=== PATIENT | female | born 1975 | race Caucasian/White ===

== ENCOUNTER 2020-10-18 12:20 | Inpatient (IN) ==
[2020-10-18 16:21] LABS: Basophils # 0.1 10*3/uL (0.0-0.2); Basophils % 0.9 % (0.0-0.8); Eosinophils % 0.2 % (0.00-10.9); Hemoglobin 14.1 GM/DL (12.0-16.0); Immature Granulocytes % 5.6 %; Immature Granulocytes Absolute 0.73 #; Lymphocytes # 1.6 10*3/uL (1.4-4.0); Mean Corpuscular HGB Conc 32.8 GM/DL (32-36); Mean Corpuscular Volume 86.2 FL (87-102); Mean Platelet Volume 9.4 FL (9.6-12.0); Monocytes % 9.3 % (1.7-12.7); Platelet Count 459 T/CUMM (130-400); Red Blood Count 4.99 MC/CUMM (3.8-5.5); Red Cell Distribution Width 13.8 % (9.3-17.3); White Blood Count 12.9 T/CUMM (4-12)
[2020-10-18] MEDS ORDERED: VANCOMYCIN INJ 1,000 MG in SODIUM CHLORIDE 0.9% 250 ML IV STA (16:28)
[2020-10-18] MEDS ORDERED: FUROSEMIDE 40 MG/4 ML VIAL IV STA (16:29)
[2020-10-18 16:39] LABS: Albumin 2.5 G/DL (3.4-5.0); Bilirubin,Total 1.4 MG/DL (0.20-1.00); Calcium 9.4 MG/DL (8.5-10.1); Osmolality,Calculated 265.7 MOS/KG (273-304); Potassium 5.1 MMOL/L (3.5-5.1)
[2020-10-18] MEDS ORDERED: ZALEPLON 5 MG CAPSULE PO PRN (17:33)
[2020-10-18] MEDS ORDERED: ONDANSETRON 4 MG/2 ML VIAL IV PRN (17:33)
[2020-10-18] MEDS ORDERED: GLUCAGON 1 MG VIAL IM PRN (17:33)
[2020-10-18] MEDS ORDERED: MORPHINE 2 MG/1 ML SYRINGE IV PRN (17:33)
[2020-10-18] MEDS ORDERED: diphenhydrAMINE CAP 25 MG CAPSULE PO PRN (17:33)
[2020-10-18] MEDS ORDERED: NICOTINE 21 MG/24 HR PATCH TRANSDERM PRN (17:33)
[2020-10-18] MEDS ORDERED: guaiFENesin/DM ER 600-30 MG TABLET PO PRN (17:33)
[2020-10-18] MEDS ORDERED: hydrALAZINE 20 MG/1 ML VIAL IV PRN (17:33)
[2020-10-18] MEDS ORDERED: DEXTROSE 50% 25 GM/50 ML VIAL IV PRN (17:33)
[2020-10-18] MEDS ORDERED: ACETAMINOPHEN 325 MG TABLET PO PRN (17:33)
[2020-10-18 18:47] LABS: Lymphocytes 13 % (20-55); Segmented Neutrophils 75 % (50-85)
[2020-10-18 18:48] LABS: Total Cells Counted 100
[2020-10-18] MEDS: CLINDAMYCIN INJ 600 MG/50 ML PREMIX IV SCH (21:46)
[2020-10-18] MEDS: SODIUM CHLORIDE 0.9% 1,000 ML IV SCH (21:46)
[2020-10-18] MEDS: ENOXAPARIN 40 MG/0.4 ML SYRINGE SUBCUT SCH (21:46)
[2020-10-18] MEDS: FLUCONAZOLE INJ 200 MG/100 ML PREMIX IV SCH (22:33)
[2020-10-19] MEDS: CLINDAMYCIN INJ 600 MG/50 ML PREMIX IV SCH ×3 (03:55→16:19)
[2020-10-19] MEDS: VANCOMYCIN INJ 1,500 MG in SODIUM CHLORIDE 0.9% 500 ML IV SCH ×2 (03:56→17:54)
[2020-10-19 06:45] LABS: Basophils # 0.1 10*3/uL (0.0-0.2); Basophils % 0.9 % (0.0-0.8); Eosinophils # 0.1 10*3/uL (0.0-0.87); Eosinophils % 0.9 % (0.00-10.9); Hematocrit 32.9 VOL% (35.7-47.0); Immature Granulocytes % 6.4 %; Immature Granulocytes Absolute 0.55 #; Lymphocytes # 1.7 10*3/uL (1.4-4.0); Lymphocytes % 19.3 % (21.3-54.2); Mean Corpuscular HGB Conc 31.9 GM/DL (32-36); Mean Platelet Volume 9.7 FL (9.6-12.0); Monocytes % 9.5 % (1.7-12.7); Red Cell Distribution Width 14.1 % (9.3-17.3)
[2020-10-19 06:47] LABS: Hemoglobin 10.5 GM/DL (12.0-16.0); Red Blood Count 3.74 MC/CUMM (3.8-5.5); White Blood Count 8.7 T/CUMM (4-12)
[2020-10-19 06:48] LABS: Platelet Count 315 T/CUMM (130-400)
[2020-10-19 06:54] LABS: Calcium 7.7 MG/DL (8.5-10.1); Osmolality,Calculated 273.8 MOS/KG (273-304); Potassium 3.6 MMOL/L (3.5-5.1)
[2020-10-19 07:28] LABS: Hypochromasia 1+; Lymphocytes 15 % (20-55); Microcytosis 1+; Ovalocytes Slight; Segmented Neutrophils 78 % (50-85); Total Cells Counted 100
[2020-10-19 07:29] LABS: Platelet Estimate Normal
[2020-10-19] MEDS: PANTOPRAZOLE 40 MG TABLET PO SCH (09:35)
[2020-10-19] MEDS: BISACODYL 5 MG TABLET PO SCH (10:10)
[2020-10-19] MEDS: ENOXAPARIN 40 MG/0.4 ML SYRINGE SUBCUT SCH (17:04)
[2020-10-19] MEDS: cefTRIAXone 2,000 MG in SODIUM CHLORIDE 0.9% 100 ML IV SCH (20:06)
[2020-10-19] MEDS: FLUCONAZOLE INJ 200 MG/100 ML PREMIX IV SCH (21:51)
[2020-10-20] MEDS: VANCOMYCIN INJ 1,500 MG in SODIUM CHLORIDE 0.9% 500 ML IV SCH ×2 (03:53→16:22)
[2020-10-20 05:33] LABS: Basophils # 0.1 10*3/uL (0.0-0.2); Basophils % 1.2 % (0.0-0.8); Eosinophils # 0.3 10*3/uL (0.0-0.87); Eosinophils % 3.5 % (0.00-10.9); Hematocrit 35.1 VOL% (35.7-47.0); Hemoglobin 10.8 GM/DL (12.0-16.0); Immature Granulocytes % 8.2 %; Immature Granulocytes Absolute 0.69 #; Lymphocytes # 1.7 10*3/uL (1.4-4.0); Lymphocytes % 20.3 % (21.3-54.2); Mean Corpuscular HGB Conc 30.8 GM/DL (32-36); Mean Corpuscular Volume 90.2 FL (87-102); Mean Platelet Volume 9.4 FL (9.6-12.0); Monocytes % 8.9 % (1.7-12.7); Neutrophils % 57.9 % (38.7-73.9); Platelet Count 283 T/CUMM (130-400); Red Blood Count 3.89 MC/CUMM (3.8-5.5); Red Cell Distribution Width 14.5 % (9.3-17.3); White Blood Count 8.4 T/CUMM (4-12)
[2020-10-20 05:54] LABS: Calcium 7.7 MG/DL (8.5-10.1); Potassium 3.7 MMOL/L (3.5-5.1)
[2020-10-20 06:35] LABS: Band Neutrophils 2 % (0-10); Eosinophils 2 % (0-10); Lymphocytes 9 % (20-55); Myelocytes 2 %; Platelet Estimate Normal; Segmented Neutrophils 78 % (50-85); Total Cells Counted 100
[2020-10-20] MEDS: PANTOPRAZOLE 40 MG TABLET PO SCH (09:11)
[2020-10-20] MEDS: MULTIVITAMIN (BEROCCA) TABLET PO SCH (09:11)
[2020-10-20] MEDS: CHOLECALCIFEROL 1,000 UNIT TABLET PO SCH (09:11)
[2020-10-20] MEDS: BISACODYL 5 MG TABLET PO SCH (10:02)
[2020-10-20] MEDS: NYSTATIN POWDER 15 GM BOTTLE TOP SCH ×2 (15:35→21:21)
[2020-10-20] MEDS: ENOXAPARIN 40 MG/0.4 ML SYRINGE SUBCUT SCH (18:14)
[2020-10-20] MEDS: cefTRIAXone 2,000 MG in SODIUM CHLORIDE 0.9% 100 ML IV SCH (18:14)
[2020-10-20] MEDS: FLUCONAZOLE INJ 200 MG/100 ML PREMIX IV SCH (21:20)
[2020-10-20] MEDS: POLYETHYLENE GLYCOL POWDER 17 GM PACK PO SCH (21:21)
[2020-10-20] MEDS: LUBIPROSTONE 8 MCG CAPSULE PO SCH (21:21)
[2020-10-20] MEDS: DOCUSATE SODIUM 100 MG CAPSULE PO SCH (21:21)
[2020-10-21] MEDS: SODIUM CHLORIDE 0.9% 1,000 ML IV SCH ×2 (03:27→17:32)
[2020-10-21] MEDS: VANCOMYCIN INJ 1,500 MG in SODIUM CHLORIDE 0.9% 500 ML IV SCH (03:28)
[2020-10-21] MEDS ORDERED: VANCOMYCIN INJ 1,250 MG in SODIUM CHLORIDE 0.9% 250 ML IV SCH (04:30)
[2020-10-21 04:56] LABS: Basophils # 0.1 10*3/uL (0.0-0.2); Eosinophils # 0.5 10*3/uL (0.0-0.87); Eosinophils % 5.8 % (0.00-10.9); Hematocrit 39.4 VOL% (35.7-47.0); Immature Granulocytes % 6.4 %; Immature Granulocytes Absolute 0.58 #; Lymphocytes # 1.8 10*3/uL (1.4-4.0); Lymphocytes % 19.5 % (21.3-54.2); Mean Corpuscular HGB Conc 30.5 GM/DL (32-36); Mean Corpuscular Volume 91.8 FL (87-102); Mean Platelet Volume 9.3 FL (9.6-12.0); Monocytes % 7.7 % (1.7-12.7); Neutrophils % 59.6 % (38.7-73.9); Platelet Count 339 T/CUMM (130-400); Red Blood Count 4.29 MC/CUMM (3.8-5.5); Red Cell Distribution Width 14.5 % (9.3-17.3); White Blood Count 9.1 T/CUMM (4-12)
[2020-10-21 05:21] LABS: Eosinophils 4 % (0-10); Hypochromasia 1+; Lymphocytes 16 % (20-55); Microcytosis 1+; Segmented Neutrophils 66 % (50-85); Total Cells Counted 100
[2020-10-21 05:22] LABS: Platelet Estimate Normal
[2020-10-21 05:26] LABS: Potassium 3.7 MMOL/L (3.5-5.1)
[2020-10-21 05:29] LABS: Osmolality,Calculated 271.7 MOS/KG (273-304)
[2020-10-21] MEDS: LINACLOTIDE 145 MCG CAPSULE PO SCH (08:38)
[2020-10-21] MEDS: BISACODYL 5 MG TABLET PO SCH (08:39)
[2020-10-21] MEDS: LUBIPROSTONE 8 MCG CAPSULE PO SCH ×2 (08:39→20:17)
[2020-10-21] MEDS: POLYETHYLENE GLYCOL POWDER 17 GM PACK PO SCH ×2 (08:39→20:51)
[2020-10-21] MEDS: MULTIVITAMIN (BEROCCA) TABLET PO SCH (09:31)
[2020-10-21] MEDS: PANTOPRAZOLE 40 MG TABLET PO SCH (09:31)
[2020-10-21] MEDS: CHOLECALCIFEROL 1,000 UNIT TABLET PO SCH (09:31)
[2020-10-21] MEDS: DOCUSATE SODIUM 100 MG CAPSULE PO SCH ×2 (09:32→20:51)
[2020-10-21] MEDS: NYSTATIN POWDER 15 GM BOTTLE TOP SCH ×3 (09:35→20:17)
[2020-10-21] MEDS: FUROSEMIDE 40 MG TABLET PO SCH (15:45)
[2020-10-21] MEDS: SKIN HEALING OINT (AQUAPHOR) 50 GM TUBE TOP SCH (15:46)
[2020-10-21] MEDS: SPIRONOLACTONE 25 MG TABLET PO SCH (15:46)
[2020-10-21] MEDS: ENOXAPARIN 40 MG/0.4 ML SYRINGE SUBCUT SCH (17:52)
[2020-10-21] MEDS: cefTRIAXone 2,000 MG in SODIUM CHLORIDE 0.9% 100 ML IV SCH (20:51)
[2020-10-21] MEDS: DESITIN 4OZ/NYSTATIN 15 GRAM MIXTURE PASTE TOP SCH (21:31)
[2020-10-22] MEDS: SODIUM CHLORIDE 0.9% 1,000 ML IV SCH ×2 (04:05→17:00)
[2020-10-22 05:43] LABS: Basophils # 0.1 10*3/uL (0.0-0.2); Basophils % 0.9 % (0.0-0.8); Eosinophils # 0.5 10*3/uL (0.0-0.87); Eosinophils % 5.1 % (0.00-10.9); Hemoglobin 10.8 GM/DL (12.0-16.0); Immature Granulocytes Absolute 0.47 #; Lymphocytes # 1.8 10*3/uL (1.4-4.0); Mean Corpuscular HGB Conc 31.8 GM/DL (32-36); Mean Corpuscular Volume 89.5 FL (87-102); Mean Platelet Volume 9.3 FL (9.6-12.0); Monocytes % 7.8 % (1.7-12.7); Neutrophils % 62.2 % (38.7-73.9); Platelet Count 289 T/CUMM (130-400); Red Cell Distribution Width 14.4 % (9.3-17.3); White Blood Count 9.5 T/CUMM (4-12)
[2020-10-22 06:01] LABS: Calcium 7.6 MG/DL (8.5-10.1); Osmolality,Calculated 274.4 MOS/KG (273-304)
[2020-10-22] MEDS ORDERED: VANCOMYCIN INJ 1,500 MG in SODIUM CHLORIDE 0.9% 250 ML IV SCH (09:00)
[2020-10-22] MEDS: LUBIPROSTONE 8 MCG CAPSULE PO SCH ×2 (10:11→21:29)
[2020-10-22] MEDS: LINACLOTIDE 145 MCG CAPSULE PO SCH (10:11)
[2020-10-22] MEDS: DOCUSATE SODIUM 100 MG CAPSULE PO SCH ×2 (10:12→21:29)
[2020-10-22] MEDS: BISACODYL 5 MG TABLET PO SCH (10:12)
[2020-10-22] MEDS: SPIRONOLACTONE 25 MG TABLET PO SCH (10:13)
[2020-10-22] MEDS: CHOLECALCIFEROL 1,000 UNIT TABLET PO SCH (10:13)
[2020-10-22] MEDS: POTASSIUM CHLORIDE 20 MEQ TABLET PO SCH (10:13)
[2020-10-22] MEDS: MULTIVITAMIN (BEROCCA) TABLET PO SCH (10:13)
[2020-10-22] MEDS: FUROSEMIDE 40 MG TABLET PO SCH (10:13)
[2020-10-22] MEDS: PANTOPRAZOLE 40 MG TABLET PO SCH (10:13)
[2020-10-22] MEDS: SKIN HEALING OINT (AQUAPHOR) 50 GM TUBE TOP SCH (10:14)
[2020-10-22] MEDS: POLYETHYLENE GLYCOL POWDER 17 GM PACK PO SCH ×2 (10:15→21:29)
[2020-10-22] MEDS: NYSTATIN POWDER 15 GM BOTTLE TOP SCH ×3 (10:15→21:33)
[2020-10-22] MEDS: DESITIN 4OZ/NYSTATIN 15 GRAM MIXTURE PASTE TOP SCH ×2 (10:20→21:34)
[2020-10-22] MEDS: VANCOMYCIN INJ 1,500 MG in SODIUM CHLORIDE 0.9% 500 ML IV SCH (11:23)
[2020-10-22] MEDS ORDERED: TUBERCULIN SKIN TEST 0.1 ML SYRINGE INTRADERM ONE (13:00)
[2020-10-22] MEDS: ENOXAPARIN 40 MG/0.4 ML SYRINGE SUBCUT SCH (19:38)
[2020-10-22] MEDS: cefTRIAXone 2,000 MG in SODIUM CHLORIDE 0.9% 100 ML IV SCH (21:29)
[2020-10-23 06:10] LABS: Basophils # 0.1 10*3/uL (0.0-0.2); Basophils % 0.7 % (0.0-0.8); Eosinophils # 0.5 10*3/uL (0.0-0.87); Hematocrit 37.6 VOL% (35.7-47.0); Hemoglobin 11.5 GM/DL (12.0-16.0); Immature Granulocytes % 2.4 %; Immature Granulocytes Absolute 0.21 #; Lymphocytes # 1.9 10*3/uL (1.4-4.0); Lymphocytes % 21.4 % (21.3-54.2); Mean Corpuscular HGB Conc 30.6 GM/DL (32-36); Mean Corpuscular Volume 90.8 FL (87-102); Mean Platelet Volume 9.7 FL (9.6-12.0); Neutrophils % 60.5 % (38.7-73.9); Platelet Count 292 T/CUMM (130-400); Red Blood Count 4.14 MC/CUMM (3.8-5.5); Red Cell Distribution Width 14.5 % (9.3-17.3); White Blood Count 8.7 T/CUMM (4-12)
[2020-10-23 06:28] LABS: Calcium 7.6 MG/DL (8.5-10.1); Osmolality,Calculated 271.5 MOS/KG (273-304); Potassium 3.1 MMOL/L (3.5-5.1)
[2020-10-23] MEDS: LINACLOTIDE 145 MCG CAPSULE PO SCH (06:44)
[2020-10-23] MEDS: FUROSEMIDE 40 MG TABLET PO SCH (08:53)
[2020-10-23] MEDS: MULTIVITAMIN (BEROCCA) TABLET PO SCH (08:53)
[2020-10-23] MEDS: DOCUSATE SODIUM 100 MG CAPSULE PO SCH (08:53)
[2020-10-23] MEDS: SPIRONOLACTONE 25 MG TABLET PO SCH (08:53)
[2020-10-23] MEDS: PANTOPRAZOLE 40 MG TABLET PO SCH (08:53)
[2020-10-23] MEDS: CHOLECALCIFEROL 1,000 UNIT TABLET PO SCH (08:53)
[2020-10-23] MEDS: POTASSIUM CHLORIDE 20 MEQ TABLET PO SCH (08:53)
[2020-10-23] MEDS: LUBIPROSTONE 8 MCG CAPSULE PO SCH (08:59)
[2020-10-23] MEDS: SODIUM CHLORIDE 0.9% 1,000 ML IV SCH ×3 (09:13→09:14)
[2020-10-23] MEDS: BISACODYL 5 MG TABLET PO SCH (09:14)
[2020-10-23] MEDS: SKIN HEALING OINT (AQUAPHOR) 50 GM TUBE TOP SCH (09:14)
[2020-10-23] MEDS: DESITIN 4OZ/NYSTATIN 15 GRAM MIXTURE PASTE TOP SCH (09:15)
[2020-10-23] MEDS: NYSTATIN POWDER 15 GM BOTTLE TOP SCH (09:15)
[2020-10-23] MEDS: POLYETHYLENE GLYCOL POWDER 17 GM PACK PO SCH (09:15)
[2020-10-23 11:55] VITALS: BP 127/69
[2020-10-23] MEDS ORDERED: POTASSIUM CHLORIDE 20 MEQ TABLET PO ONE (12:00)
[2020-10-23] MEDS ORDERED: ERGOCALCIFEROL 50,000 UNIT CAPSULE PO SCH (12:00)
[2020-10-23] MEDS: VANCOMYCIN INJ 1,500 MG in SODIUM CHLORIDE 0.9% 500 ML IV SCH (14:35)
== END 2020-10-23 13:52 | disposition swing bed (61) | DRG 603 ==
LOC: N.ED 12:20 → N.EDINP 17:33 → N.5E 18:51
PROVIDERS: ADMIT Hospitalist; ATTEND Hospitalist